=== PATIENT | male | born 1980 | race Caucasian/White ===

== ENCOUNTER 2018-07-29 21:41 | Emergency (ER) | payer SELFPAY ==
[2018-07-29] MEDS ORDERED: HYDROmorphone 1 MG/ML Syringe IVPUSH STA (22:18)
[2018-07-29] MEDS ORDERED: Ondansetron 4 MG/2 ML SDV IVPUSH ONE (22:18)
[2018-07-29] MEDS ORDERED: Tamsulosin 0.4 MG Cap.ER PO STA (22:18)
[2018-07-29] MEDS ORDERED: Sodium Chloride 0.9% 1,000 ML IV SCH (22:30)
--- NOTE | 2018-07-29 22:31 | EDM.PDOC ---
ED HPI GENERAL MEDICAL PROBLEM - General Chief Complaint: Flank Pain Stated Complaint: POSS KIDNEY STONES Time Seen by Provider: 07/29/18 22:09 Source of Information: Reports: Patient, RN Notes Reviewed History Limitations: Reports: No Limitations - History of Present Illness INITIAL COMMENTS - FREE TEXT/NARRATIVE: The patient states that he developed right flank pain that radiates to the lower right abdomen around 01:00 this morning. The pain is stabbing in character , and is constant. He states that it feels better if he is in a warm bath, otherwise, he has not identified any modifiers. He has had nausea and vomiting all day. He reports dysuria, urinary frequency, and urinary urgency, and he also notes that his urine has been dark. No recent fever. No recent constipation or diarrhea. The patient states that he has had similar symptoms in the past when he has had kidney stones. He reports 5 or 6 prior episodes of kidney stones. The patient does not have a PCP. Right Flank Pain Score (Numeric/FACES): 8 - Related Data Allergies Allergy/AdvReac Type Severity Reaction Status Date / Time No Known Allergies Allergy Verified 07/29/18 21:49 Home Meds: Home Meds Acetaminophen/HYDROcodone [[place] 325-5 MG] 1 - 2 tab PO Q6H PRN #20 tablet 07/30 [Rx] Ondansetron [Zofran ODT] 1 tab PO Q8HR PRN #10 tab.dis 07/30/18 [Rx] Tamsulosin HCl [Flomax] 1 cap PO QPM PRN #5 cap.er.24h 07/30/18 [Rx] Past Medical History Cardiovascular History: Reports: Hypertension (untreated) Genitourinary History: Reports: Renal Calculus Musculoskeletal History: Reports: Other (See Below) (Left knee torn ligament) - Past Surgical History Male Surgical History: Reports: Lithotripsy (ES[facility]), Ureteral Stent Musculoskeletal Surgical History: Reports: Arthroscopic Knee (left) Social & Family History - Tobacco Use Smoking Status *Q: Never Smoker - Caffeine Use Caffeine Use: Reports: None - Alcohol Use Alcohol Use History: Yes Alcohol Use Frequency: Rarely - Recreational Drug Use Recreational Drug Use: No - Living Situation & Occupation Living situation: Reports: Single, with Significant Other (Girlfriend), with Family (2 kids) 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 ED EXAM, RENAL/ - Physical Exam Exam: See Below Exam Limited By: No Limitations General Appearance: Alert, WD/WN, No Apparent Distress Eye Exam: Bilateral Eye: EOMI, Normal Inspection Ears: Normal External Exam, Hearing Grossly Normal Nose: Normal Inspection Throat/Mouth: Normal Inspection, Normal Lips, Normal Voice, No Airway Compromise Head: Atraumatic, Normocephalic Neck: Normal Inspection, Full Range of Motion Respiratory/Chest: No Respiratory Distress, Lungs Clear, Normal Breath Sounds, No Accessory Muscle Use Cardiovascular: Normal Peripheral Pulses, Regular Rate, Rhythm, No Edema, No Gallop, No JVD, No Murmur, No Rub GI/Abdominal: Normal Bowel Sounds, Soft, Non-Tender, No Organomegaly, No Distention, No Abnormal Bruit, No Mass (Male) Exam: Deferred Rectal (Males) Exam: Deferred Back Exam: Normal Inspection, Full Range of Motion, CVA Tenderness (R). No: CVA Tenderness (L) Extremities: Normal Inspection, Normal Range of Motion, No Pedal Edema, Normal Capillary Refill Neurological: Alert, Oriented, Normal Cognition, No Motor/Sensory Deficits Psychiatric: Normal Affect Skin Exam: Warm, Dry, Intact, Normal Color, No Rash Course - Vital Signs Last Recorded V/S: Last Vital Signs Temp 36.5 C 07/29/18 21:47 Pulse 61 07/29/18 21:47 Resp 18 07/29/18 21:47 BP 156/78 H 07/29/18 21:47 Pulse Ox 98 07/29/18 21:47 - Orders/Labs/Meds Orders: Active Orders 24 hr Category Date Time Status Strain Urine [RC] ASDIRECTED Care 07/29/18 22:18 Active Abdomen Pelvis wo Cont [CT] Stat Exams 07/29/18 22:18 Taken Sodium Chloride 0.9% [Normal Saline] 1,000 ml Med 07/29/18 22:30 Active IV ASDIRECTED Medication Orders Sodium Chloride (Normal Saline) 1,000 mls @ 150 mls/hr IV ASDIRECTED ANUJ Last Admin: 07/29/18 22:25 Dose: 150 mls/hr Labs: Laboratory Tests 07/29/18 Range/Units 22:11 Urine Color Yellow (Yellow) Urine Appearance Clear (Clear) Urine pH 6.0 (5.0-8.0) Ur Specific [place] 1.025 (1.005-1.030) Urine Protein Trace H (Negative) Urine Glucose (UA) Negative (Negative) Urine Ketones Negative (Negative) Urine Occult Blood 1+ H (Negative) Urine Nitrite Negative (Negative) Urine Bilirubin Negative (Negative) Urine Urobilinogen 0.2 (0.2-1.0) Ur Leukocyte Esterase Negative (Negative) Urine RBC 10-20 H (0-5) /hpf Urine WBC 0-5 (0-5) /hpf Ur Squamous Epith Cells 0-5 (0-5) /hpf Urine Bacteria Few (FEW) /hpf Urine Mucus Few (FEW) /hpf Meds: Medications Generic Name Dose Route Start Last Admin Trade Name Freq PRN Reason Stop Dose Admin Sodium Chloride 1,000 mls @ 150 mls/hr 07/29/18 22:30 07/29/18 22:25 Normal Saline IV 150 mls/hr ASDIRECTED ANUJ Administration Discontinued Medications Generic Name Dose Route Start Last Admin Trade Name Keshawnq PRN Reason Stop Dose Admin Hydromorphone HCl 1 mg 07/29/18 22:18 07/29/18 22:28 Dilaudid IVPUSH 07/29/18 22:19 1 mg ONETIME STA Administration Metoclopramide HCl 10 mg 07/29/18 23:42 07/29/18 23:45 Reglan IVPUSH 07/29/18 23:43 10 mg ONETIME ONE Administration Metoclopramide HCl Confirm 07/29/18 23:43 07/29/18 23:47 Reglan Administered 07/29/18 23:44 Not Given Dose 10 mg .ROUTE .STK-MED ONE Ondansetron HCl 4 mg 07/29/18 22:18 07/29/18 22:27 Zofran IVPUSH 07/29/18 22:19 4 mg ONETIME ONE Administration Tamsulosin HCl 0.4 mg 07/29/18 22:18 07/29/18 22:31 Flomax PO 07/29/18 22:19 0.4 mg ONETIME STA Administration - Re-Assessments/Exams Free Text/Narrative Re-Assessment/Exam: 07/29/18 22:19 The patient's history and physical exam are entirely consistent with a ureterolith. I have ordered a urinalysis to rule out a UTI, and a CT scan of the abdomen and pelvis without contrast to confirm. The patient will strain all of his urine from here on. He will receive IV hydromorphone, IV ondansetron, oral tamsulosin, and IV fluid. 07/29/18 22:44 The patient's urinalysis is remarkable for 1+ occult blood and 10-20 RBCs, but is otherwise normal. This is consistent with a ureterolith. 07/29/18 23:01 The patient reports good control of his pain, presently. 07/30/18 00:03 CT of the abdomen and pelvis without contrast is read by Kenrick as "There is an obstructing 8 mm calcification at the right ureterovesicular junction." 07/30/18 00:12 Test results discussed with the patient. I will discharge him home with prescriptions for [place], Flomax, and Zofran. He will be given a urine strainer. I will refer him to urology. Departure - Departure Time of Disposition: 00:12 Disposition: Home, Self-Care 01 Condition: Good Clinical Impression: Ureterolithiasis - Discharge Information *PRESCRIPTION DRUG MONITORING PROGRAM REVIEWED*: Not Applicable *COPY OF PRESCRIPTION DRUG MONITORING REPORT IN PATIENT JANUSZ: Not Applicable Prescriptions: Ondansetron [Zofran ODT] 1 tab PO Q8HR PRN #10 tab.dis PRN Reason: Nausea/Vomiting Acetaminophen/HYDROcodone [[place] 325-5 MG] 1 - 2 tab PO Q6H PRN #20 tablet PRN Reason: Pain (Severe 7-10) Tamsulosin HCl [Flomax] 1 cap PO QPM PRN #5 cap.er.24h PRN Reason: Pain Referrals: Marciano Read MD [Ordering Only Provider] - Forms: ED Department Discharge Additional Instructions: You were seen in the emergency room for right flank pain and dark urine, with nausea and vomiting. Workup in the ER included a urinalysis and a CT scan of the abdomen and pelvis without contrast. Your urine showed some blood in it, but no sign of an infection. The CT scan found an 8 mm stone at your ureterovesicular junction. Based on the size of the stone, you will not likely pass it on your own. Take [id number] ibuprofen, 2-3 tablets (400-600 mg) every 8 hours, with food, as needed for discomfort. Take 1-2 tablets of the prescription opioid [place] up to every 6 hours, as needed for pain not relieved by ibuprofen. If you take [place], do not drive or operate heavy machinery for 10 hours afterwards. [place] may cause constipation, so consider taking a stool softener. Take one tablet of the anti-spasm medicine Flomax every evening, starting Saturday evening, 07/30/2018, as needed for pain. Dissolve one tablet of the anti-nausea medicine Zofran on your tongue up to every 8 hours, as needed for nausea/vomiting. Stay adequately hydrated. It does not really matter what type of fluid you drink. Strain all of your urine. If you capture the stone, take it to your doctor for analysis. Follow-up with the Urologist Dr. Marciano Read in [place], at the next available appointment. If any other problems, please do not hesitate to return to the ER. - My Orders Last 24 Hours: My Active Orders 07/29/18 22:18 Strain Urine [RC] ASDIRECTED Abdomen Pelvis wo Cont [CT] Stat 07/29/18 22:30 Sodium Chloride 0.9% [Normal Saline] 1,000 ml IV ASDIRECTED - Assessment/Plan Last 24 Hours: My Active Orders 07/29/18 22:18 Strain Urine [RC] ASDIRECTED Abdomen Pelvis wo Cont [CT] Stat 07/29/18 22:30 Sodium Chloride 0.9% [Normal Saline] 1,000 ml IV ASDIRECTED
[2018-07-29] MEDS ORDERED: Metoclopramide 10 MG/2 ML SDV IVPUSH ONE (23:42)
[2018-07-29] MEDS ORDERED: Metoclopramide 10 MG/2 ML SDV ONE (23:43)
--- NOTE | 2018-07-30 12:37 | CT ---
CT abdomen and pelvis Technique: Multiple axial sections were obtained from above the dome of the diaphragm inferiorly through the pubic symphysis. Intravenous and oral contrast was not utilized. Study has been performed as a ureteral stone protocol. Findings: Right ureter is markedly dilated down to the UVJ. This finding is caused by a 9 mm obstructing stone within the distal right ureter at the UVJ. No other abnormal calcifications are seen along the course of the ureters. Small nonobstructing calculus is seen within the inferior left kidney measuring about 2 mm. No other abnormal calcifications are seen within the kidneys. Visualized lung bases show nothing acute. Noncontrast appearance of the liver and spleen appears within normal limits. Adrenal glands show no nodule. Pancreas is within normal limits. Gallbladder contains no calcified gallstones. Aorta shows no aneurysm. No retroperitoneal adenopathy or mesenteric abnormalities are seen. No pelvic mass or adenopathy is seen. Slight prostate calcification is incidentally noted. No free fluid or inflammatory change is seen. Bone window settings were reviewed which show spondylitic defects at L5-S1 with minimal spondylolisthesis at L5-S1. Impression: 1. 9 mm obstructing stone within the distal right ureter causing proximal hydronephrosis. 2. Small 2 mm nonobstructing stone within the inferior left kidney. 3. Other incidental findings as noted above. Diagnostic code #3 I agree with preliminary report from [facility], finalized on 07/30/18, 12:59 AM Central Time
== END 2018-07-30 00:40 | disposition home or self-care (01) ==
LOC: JD.ED 21:41
DX: N13.2 Hydronephrosis with renal and ureteral calculous obstruction (principal); I10 Essential (primary) hypertension
CPT/HCPCS: 74176; 81001; 96361; 96374; 96375; 99284; A9270; J1170; J2405; J2765; J7040